=== PATIENT | female | born 2005 | race Caucasian/White ===

== ENCOUNTER 2024-08-18 19:02 | Emergency (ER) | payer OTHER, SELFPAY ==
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
[2024-08-18 19:32] VITALS: BP 127/63; PULSE 65; RESP 16; TEMP 37.1; O2SAT 100; BMI 23.1
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
[2024-08-18 19:51] LABS: MANUAL DIFF FLAG NO
[2024-08-18 19:52] LABS: Basophils Percent Auto 0.3 % (0-2); Eosinophils Absolute Auto 0.1 X10*3/uL (0.0-0.4); Eosinophils Percent Auto 0.8 % (0-4); Hematocrit 38.9 % (37.0-47.0); Hemoglobin 12.8 g/dl (12.0-16.0); Imm Gran Abs Auto 0.06 X10*3/uL (0.00-0.03); Imm Gran Pct Auto 0.6 % (0.0-0.4); Lymphocytes Absolute Auto 2.7 X10*3/uL (1.2-4.9); Lymphocytes Percent Auto 25.1 % (20-40); Mean Corpuscular HGB Conc 32.9 g/dl (31.0-35.0); Mean Corpuscular Hemoglobin 30.7 pg (27.0-33.0); Mean Corpuscular Volume 93.3 fL (80.0-98.0); Mean Platelet Volume 9.6 fL (9.4-12.3); Monocytes Absolute Auto 0.8 X10*3/uL (0.1-1.2); Monocytes Percent Auto 7.1 % (2-11); Neutrophils Percent Auto 66.1 % (45-73); Platelet Count 252 X10*3/uL (160-400); Red Blood Count 4.17 X10*6/uL (4.20-5.50); Red Cell Distribution Width 13.2 % (11.0-16.0); White Blood Count 10.7 X10*3/uL (4.8-10.8)
[2024-08-18 20:15] LABS: Alanine Aminotransferase 18 U/L (0-31); Albumin Level 4.6 g/dL (3.5-5.0); Alkaline Phosphatase 90 U/L (39-117); Anion Gap 14 (12-20); Aspartate Amino Transferase 18 U/L (5-31); Bilirubin Direct 0.2 mg/dL (0.0-0.5); Bilirubin Total 0.4 mg/dL (0.0-1.0); Blood Urea Nitrogen 14 mg/dL (9-16); Calcium 9.9 mg/dL (8.4-10.2); Carbon Dioxide 27 mmol/L (22-29); Chloride 104 mmol/L (96-108); Creatinine Clr Calc Pharmacy 99.6; Estimated Glomerular Filt Rate > 60; Glucose Random 113 mg/dL (60-115); HCG Quantitative < 2 mIU/mL; Lipase 14 U/L (8-78); Potassium 4.7 mmol/L (3.3-5.1); Sodium 140 mmol/L (135-145); Total Protein 7.5 g/dL (6.5-8.0)
--- NOTE | 2024-08-18 21:01 | PC.NURSE ---
pt from lobby, assume care of pt at this time
[2024-08-18 23:00] VITALS: BP 123/85; PULSE 75; RESP 16; TEMP 36.9; O2SAT 98
--- NOTE | 2024-08-18 23:21 | PC.NURSE ---
report given to Cari RYAN
[2024-08-18 23:45] VITALS: BP 123/85; PULSE 75; RESP 16; TEMP 36.9; O2SAT 98
== END 2024-08-18 23:45 | disposition home or self-care (01) ==
PROVIDERS: Physician Assistant Medical; Emergency Provider Emergency Medicine
DX: S30.1XXA Contusion of abdominal wall, initial encounter (principal); R51.9 Headache, unspecified; M54.2 Cervicalgia; R07.89 Other chest pain; R10.2 Pelvic and perineal pain; V43.52XA Car driver injured in collision with other type car in traffic accident, initial encounter; Y93.89 Activity, other specified; Y92.488 Other paved roadways as the place of occurrence of the external cause; Y99.8 Other external cause status; Z79.899 Other long term (current) drug therapy
CPT/HCPCS: 36415; 70450; 71250; 72125; 74176; 80048; 80076; 83690; 84702; 85025; 99284

== ENCOUNTER 2024-09-24 07:52 | Outpatient (RCR) | payer OTHER, SELFPAY | END 2024-11-26 09:23 | disposition home or self-care (01) | LOC: HO.PT 07:52 | PROVIDERS: PCP Pediatrics Adolescent Medicine; Visit Provider Obstetrics & Gynecology | DX: M99.05 Segmental and somatic dysfunction of pelvic region (principal) | CPT/HCPCS: 97110; 97112; 97140; 97161 ==